=== PATIENT | female | born 1970 | race Caucasian/White ===

== ENCOUNTER 2022-05-08 15:39 | Emergency (ER) | payer OTHER, SELFPAY ==
--- NOTE | ~2022-05-08 | XR_ITS ---
XR lumbar spine 2-3V 05/08/2022 16:59 Indication: Status post fall. Low back pain. Procedure: 3 views lumbar spine Comparison: No prior studies for comparison. Findings: There is a mild superior endplate compression deformity of T12, age indeterminate. No signi ficant disc narrowing of the lumbar spine. No evidence for spondylolisthesis. Impression: 1: Mild age-indeterminate superior endplate compression deformity of T12. Consider correlation with C T or MRI. Reviewed, dictated and finalized at [facility]. Impression: 1: Mild age-indeterminate superior endplate compression deformity of T12. Consi ankur correlation with CT or MRI.
[2022-05-08 16:07] VITALS: BP 124/92; PULSE 91; RESP 18; TEMP 36.3; O2SAT 96
[2022-05-08 16:08] VITALS: BP 124/92; PULSE 91; RESP 18; TEMP 36.3; O2SAT 96
--- NOTE | 2022-05-08 16:27 | ED.BACK ---
HPI - Back Pain/Injury General Chief Complaint: Back Pain/Injury Stated Complaint: Fall Injury Back Pain Time Seen by Provider: 05/08/22 16:35 Source: patient and RN notes reviewed Mode of arrival: ambulatory Limitations: no limitations History of Present Illness HPI Narrative: 51-year-old female presents with concern for back pain. She reports yesterday she slipped and fell in her kitchen landing on her butt causing low back pain. She denies tailbone pain. She reports she has been using a cane for mobility due to the pain. She reports being upright makes the pain worse. She reports lying flat improves the pain. She reports she has tried muscle relaxers and opioid pain relievers without relief. She denies weakness in any extremity, loss of bowel or bladder function, perianal anesthesia. MD elicited complaint: back pain Related Data Home Medications Medication Instructions Recorded Confirmed desvenlafaxine succinate 100 mg 100 mg PO DAILY 05/08/22 05/08/22 tablet,extended release 24 hr diclofenac sodium 75 mg 75 mg PO DAILY 05/08/22 05/08/22 tablet,delayed release gabapentin 300 mg capsule 300 mg PO DAILY 05/08/22 05/08/22 lisdexamfetamine 40 mg capsule 40 mg PO DAILY 05/08/22 05/08/22 (Vyvanse) lorazepam 1 mg tablet 1 mg PO DAILY 05/08/22 05/08/22 omeprazole 40 mg capsule,delayed 40 mg PO DAILY 05/08/22 05/08/22 release rosuvastatin 20 mg tablet 20 mg PO DAILY 05/08/22 05/08/22 Allergies Allergy/AdvReac Type Severity Reaction Status Date / Time No Known Allergies Allergy Verified 05/08/22 16:32 Review of Systems Review of Systems: CONSTITUTIONAL: Denies malaise, chills, sweats, or fever. CARDIOVASCULAR: Denies chest pain, palpitations, or edema. RESPIRATORY: Denies cough or dyspnea. GASTROINTESTINAL: Denies abdominal pain, nausea, vomiting, diarrhea, loss of bowel function GENITOURINARY: Denies dysuria, hematuria, frequency, loss of bladder function. SKIN: Denies rash or itching. MUSCULOSKELETAL: Reports mid low back pain NEUROLOGIC: Denies numbness, weakness, or headache. All systems reviewed & are unremarkable except as noted in HPI and below PMFSH Comments At time of signature, agree with nursing past medical, surgical, social and family history. There is no relevant family history pertinent to the presenting complaint Exam Narrative: GENERAL: Well-appearing, well-nourished, and in no acute distress. HEAD: Normocephalic, atraumatic. EYES: PERRLA and EOMI. NECK: Supple. No lymphadenopathy. CHEST: Clear to auscultation. No respiratory distress. HEART: Regular rate and rhythm. Distal pulses palpable and equal, cap refill <3 seconds ABDOMEN: Soft, nontender, nondistended, normal active bowel sounds, no palpable or pulsatile masses. No CVA tenderness MUSCULOSKELETAL:Grossly normal range of motion and strength in all extremities; 5/5 strength with hip flexion and extension, dorsiflexion and extension, knee flexion and extension, plantar flexion and extension. Normal sensation in dermatomal distributions with sensitivity to light touch and pain. No midline back tenderness to palpation. No paraspinal tenderness. Transfers from sitting to standing. SKIN: Warm, dry, no rash. No ecchymosis, erythema, open wounds to back. NEURO: No focal deficits. Alert and oriented x3. PSYCH: Normal mood and affect Course Course Emergency Course: Patient is aware of diagnosis, understands and agrees to treatment plan. Anticipatory guidance given. Patient agrees to follow-up as directed and is aware of reasons to seek care at the emergency department. Portions of this record may have been created with voice recognition software Level of Care: Express Care Visit Vital Signs Vital signs: Vital Signs Temperature 97.4 F L 05/08/22 16:07 Pulse Rate 91 05/08/22 16:07 Respiratory Rate 18 05/08/22 16:07 Blood Pressure 124/92 H 05/08/22 16:07 Pulse Oximetry 96 05/08/22 16:07 Oxygen Delivery Room Air 04/14
[2022-05-08] MEDS: methylPREDNISolone SOD SUCC 125 MG VIAL IM (17:02)
== END 2022-05-08 17:23 | disposition home or self-care (01) ==
PROVIDERS: Emergency Provider Nurse Practitioner
DX: S22.080A Wedge compression fracture of T11-T12 vertebra, initial encounter for closed fracture (principal); W18.30XA Fall on same level, unspecified, initial encounter
CPT/HCPCS: 72100; 96372; 99213; G0463; J2930

== ENCOUNTER 2022-07-22 13:18 | Outpatient (CLI) | payer OTHER, SELFPAY | END 2022-07-22 13:19 | disposition home or self-care (01) | PROVIDERS: Visit Provider Nurse Practitioner Adult Health | DX: R82.90 Unspecified abnormal findings in urine (principal) | CPT/HCPCS: 87077; 87086; 87186 ==

== ENCOUNTER → 2022-08-18 09:56 | Outpatient (CLI) | payer OTHER, SELFPAY ==
--- NOTE | ~2022-08-18 | CT_ITS ---
EXAMINATION: CT abdomen pelvis wo/w con DATE: 08/18/2022 10:48 INDICATION: Urinary tract infection. History of adrenal adenoma. TECHNIQUE: Computed tomography (CT) of the abdomen and pelvis was performed without and subsequently with 130 CC Omnipaque 350 intravenous contrast. Automated exposure control and iterative reconstructi on technique were employed. Exam dose: 2235.04 mGy-cm total exam DLP. COMPARISON: None. FINDINGS: The lung bases are clear of infiltrate or consolidation. Normal heart size. No pericardial or pleural effusion. Status post cholecystectomy. There is diffuse hepatic steatosis. No hepatic, splenic, pancreatic or right adrenal mass lesion is n oted. Approximately 1.4 x 1.8 cm left adrenal low-attenuation lesion; history of adrenal adenoma. No urinary tract calculus or hydroureteronephrosis. No renal mass lesion. No intraluminal filling def ect of the renal collecting systems or ureters or urinary bladder or bladder wall thickening. Status post hysterectomy. Postoperative change of the stomach. Normal appendix. Diverticulosis of left and right colon; no CT evidence of diverticulitis. No bowel obstruction, bowel wall thickening, pneumatosis or intraperitoneal free air. There is atherosclerotic calcification but normal caliber of the abdominal aorta. No intraperitoneal or retroperitoneal or pelvic mass lesion or adenopathy or ascites. Very small fat-containing umbilical hernia. Moderately severe burst fracture deformity of T12. Hemangioma of L1. IMPRESSION: Left adrenal adenoma Diverticulosis of the left and right colon; no evidence of diverticulitis Normal appendix Postoperative change of the stomach Status post cholecystectomy Burst fracture of T12 Benign hemangioma of L1 Reviewed, dictated and finalized at [facility]. Reviewed, dictated and finalized at location [facility]. 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
--- NOTE | ~2022-08-18 | XR_ITS ---
Supine and upright views of the abdomen Clinical history: UTI Findings: Bowel gas pattern is nonspecific. Cholecystectomy clips noted. No evidence for obstruction or free air. No abnormal mass lesion or calcification is seen. Osseous structures are intact. Impression: No significant abnormality is seen. Reviewed, dictated and finalized at [facility]. 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
[2022-08-18 10:24] LABS: Estimated Glomerular Filt Rate > 60
== END ==
PROVIDERS: Visit Provider Nurse Practitioner Adult Health
DX: N39.0 Urinary tract infection, site not specified (principal); D35.02 Benign neoplasm of left adrenal gland; K57.30 Diverticulosis of large intestine without perforation or abscess without bleeding; Z90.49 Acquired absence of other specified parts of digestive tract; S22.081A Stable burst fracture of T11-T12 vertebra, initial encounter for closed fracture; X58.XXXA Exposure to other specified factors, initial encounter
CPT/HCPCS: 74018; 74178; Q9967

== ENCOUNTER 2022-08-26 09:56 | Outpatient (CLI) | payer OTHER, SELFPAY ==
[2022-08-26 11:13] LABS: Basophils Percent Auto 0.5 % (0.2-1.2); Eosinophils Absolute Auto 0.2 K/mm3 (0-0.3); Eosinophils Percent Auto 3.2 % (0-4.4); Hematocrit 45.2 % (37.0-47.0); Hemoglobin 15.1 g/dL (12.0-15.0); Immature Granulocyte Absolute 0.01 K/mm3 (0.00-0.031); Immature Granulocyte Percent A 0.2 % (0-0.5); Lymphocytes Absolute Auto 2.34 K/mm3 (0.9-3.2); Lymphocytes Percent Auto 39.4 % (18.3-44.2); Mean Corpuscular HGB Conc 33.4 g/dl (32-36); Mean Corpuscular Hemoglobin 30.3 pg (26-34); Mean Corpuscular Volume 90.6 fl (80-100); Mean Platelet Volume 10.5 fl (7.4-10.4); Monocytes Absolute Auto 0.3 K/mm3 (0.1-0.6); Monocytes Percent Auto 5.6 % (2.6-8.5); Neutrophils Percent Auto 51.1 % (45.5-73.1); Platelet Count Result 225 k/mm3 (150-375); Red Blood Count 4.99 M/mm3 (4.2-5.4); Red Cell Distribution Width 13.2 % (11.5-14.5); White Blood Count 5.9 K/mm3 (4.5-10.0)
[2022-08-26 11:30] LABS: Alanine Aminotransferase 36 U/L (6-35); Albumin Level 4.2 g/dL (3.5-5.1); Alkaline Phosphatase 74 U/L (38-126); Anion Gap 3 mmol/L (8-16); Aspartate Amino Transferase 33 U/L (14-36); Bilirubin,Total 0.5 mg/dL (0.2-1.3); Blood Urea Nitrogen 10 mg/dL (7-17); CRP 0.8 mg/dL (<1.0); Calcium 9.2 mg/dL (8.4-10.2); Carbon Dioxide 33 mmol/L (22-30); Chloride 102 mmol/L (98-107); Cholesterol 239 mg/dL (0-200); Estimated Glomerular Filt Rate > 60; Glucose 97 mg/dL (65-110); HDL Direct 33 mg/dL; Magnesium 1.8 mg/dL (1.6-2.3); Potassium 4.4 mmol/L (3.4-5.0); Sodium 138 mmol/L (137-145); Triglycerides 107 mg/dL (<150)
[2022-08-26 11:39] LABS: LDL Cholesterol Direct 164 mg/dL
[2022-08-26 12:04] LABS: Hemoglobin A1C 5.3 % (<5.7)
[2022-08-26 12:05] LABS: Vitamin D 25 Hydroxy 25.2 ng/mL
[2022-08-26 12:30] LABS: Free T4 Free Thyroxine 1.35 ng/mL (0.78-2.19)
[2022-08-30 12:45] LABS: DHEA-Sulfate 8 mcg/dL (8-188); Insulin Level Total 11.2 uIU/mL (<=19.6)
[2022-08-31 13:31] LABS: T3 Reverse 24 ng/dL (8-25)
[2022-09-01 22:43] LABS: Estradiol, Ultrasensitive 8 pg/mL
[2022-09-02 14:56] LABS: Zinc 75 mcg/dL (60-130)
[2022-09-02 21:23] LABS: Testosterone Free 1.3 pg/mL (0.1-6.4); Testosterone Total 20 ng/dL (2-45)
[2022-09-03 22:05] LABS: LH 27.5 mIU/mL (***); Progesterone <0.2 ng/mL (***); Triiodothyronine T3 Free 3.4 pg/mL (2.3-4.2)
[2022-09-04 04:35] LABS: Thyroid Peroxidase Antibodies 5 IU/mL (<9)
[2022-09-05 01:22] LABS: Thyroglobulin 52.4 ng/mL (2.8-40.9); Thyroglobulin Antibodies <1 IU/mL (<=1)
== END 2022-08-26 09:57 | disposition home or self-care (01) ==
LOC: ANHLAB 10:00
DX: N95.0 Postmenopausal bleeding (principal); F41.8 Other specified anxiety disorders; G47.00 Insomnia, unspecified; R68.82 Decreased libido
CPT/HCPCS: 36415; 80053; 80061; 82306; 82607; 82627; 82670; 82728; 83001; 83002; 83036; 83090; 83525; 83695; 83735; 84144; 84402; 84403; 84432; 84439; 84443; 84481; 84482; 84630; 85025; 86140; 86376; 86800

== ENCOUNTER 2023-03-20 16:24 | Outpatient (CLI) | payer OTHER, SELFPAY ==
[2023-03-20 17:24] LABS: Basophils Percent Auto 0.5 % (0.2-1.2); Eosinophils Absolute Auto 0.2 K/mm3 (0-0.3); Eosinophils Percent Auto 2.1 % (0-4.4); Hematocrit 46.4 % (37.0-47.0); Hemoglobin 15.3 g/dL (12.0-15.0); Immature Granulocyte Absolute 0.01 K/mm3 (0.00-0.031); Immature Granulocyte Percent A 0.1 % (0-0.5); Lymphocytes Absolute Auto 3.18 K/mm3 (0.9-3.2); Lymphocytes Percent Auto 42.1 % (18.3-44.2); Mean Corpuscular Hemoglobin 29.7 pg (26-34); Mean Corpuscular Volume 90.1 fl (80-100); Mean Platelet Volume 9.8 fl (7.4-10.4); Monocytes Absolute Auto 0.4 K/mm3 (0.1-0.6); Monocytes Percent Auto 4.6 % (2.6-8.5); Neutrophils Absolute Auto 3.8 K/mm3 (1.3-6.7); Neutrophils Percent Auto 50.6 % (45.5-73.1); Platelet Count Result 243 k/mm3 (150-375); Red Blood Count 5.15 M/mm3 (4.2-5.4); Red Cell Distribution Width 13.1 % (11.5-14.5); White Blood Count 7.6 K/mm3 (4.5-10.0)
[2023-03-20 17:52] LABS: Hemoglobin A1C 5.3 % (<5.7)
[2023-03-20 17:56] LABS: Alanine Aminotransferase 29 U/L (6-35); Albumin Level 4.3 g/dL (3.5-5.1); Alkaline Phosphatase 107 U/L (38-126); Anion Gap 9 mmol/L (8-16); Aspartate Amino Transferase 28 U/L (14-36); Bilirubin,Total 0.7 mg/dL (0.2-1.3); Blood Urea Nitrogen 9 mg/dL (7-17); Calcium 9.1 mg/dL (8.4-10.2); Carbon Dioxide 25 mmol/L (22-30); Chloride 104 mmol/L (98-107); Cholesterol 247 mg/dL (0-200); Estimated Glomerular Filt Rate > 60; Glucose 93 mg/dL (65-110); HDL Direct 37 mg/dL; Magnesium 1.8 mg/dL (1.6-2.3); Potassium 3.8 mmol/L (3.4-5.0); Sodium 138 mmol/L (137-145); Triglycerides 100 mg/dL (<150)
[2023-03-20 18:07] LABS: LDL Cholesterol Direct 174 mg/dL
[2023-03-20 18:29] LABS: Vitamin D 25 Hydroxy 34.8 ng/mL
[2023-03-20 18:54] LABS: Vitamin B12 > 1000.0 pg/mL (239-931)
[2023-03-22 14:49] LABS: Zinc 74 mcg/dL (60-130)
[2023-03-23 05:50] LABS: DHEA-Sulfate 8 mcg/dL (8-188); Insulin Level Total 8.1 uIU/mL (<=19.6); Thyroid Peroxidase Antibodies 9 IU/mL (<9)
[2023-03-23 13:21] LABS: T3 Reverse 30 ng/dL (8-25)
[2023-03-23 13:22] LABS: Homocysteine 7.3 umol/L (<10.4)
[2023-03-23 15:11] LABS: Testosterone Free 1.2 pg/mL (0.1-6.4); Testosterone Total 22 ng/dL (2-45)
[2023-03-24 09:54] LABS: CRP, High Sensitivity 8.4 mg/L (***)
[2023-03-26 07:22] LABS: FSH 65.6 mIU/mL (***); LH 29.6 mIU/mL (***); Progesterone 0.2 ng/mL (***)
[2023-03-27 22:36] LABS: Estradiol, Ultrasensitive 8 pg/mL
[2023-04-06 14:49] LABS: T3 Free 3.0 pg/mL
== END 2023-03-20 16:25 | disposition home or self-care (01) ==
DX: R68.82 Decreased libido (principal); G47.00 Insomnia, unspecified; R53.83 Other fatigue; R63.5 Abnormal weight gain; Z78.0 Asymptomatic menopausal state
CPT/HCPCS: 36415; 80053; 80061; 82306; 82607; 82627; 82670; 82728; 83001; 83002; 83036; 83090; 83525; 83735; 84144; 84402; 84403; 84436; 84443; 84480; 84482; 84630; 85025; 86141; 86376; 86800

== ENCOUNTER 2023-03-30 14:37 | Emergency (ER) | payer OTHER, SELFPAY ==
--- NOTE | 2023-03-30 14:42 | ED.FEMALEGU ---
HPI - Female Genitourinary General Chief complaint: Urogenital-Female Stated complaint: urinary issue Time Seen by Provider: 03/30/23 14:39 Source: patient Mode of arrival: ambulatory Limitations: no limitations History of Present Illness HPI Narrative: Nilda is a 52-year-old female patient presenting to the clinic today with complaints of possible UTI. She reports she has been having symptoms bladder pressure and burning with urination x2 weeks. States she gets urinary tract infections a lot when she goes swimming. States she has recently been swimming. Has taken some leftover Bactrim x4 days and this improved her symptoms however she discontinue taking and her symptoms return.. Related Data Home Medications Medication Instructions Recorded Confirmed lisdexamfetamine 40 mg capsule 40 mg PO DAILY 05/08/22 03/30/23 (Vyvanse) omeprazole 40 mg capsule,delayed 40 mg PO DAILY 05/08/22 03/30/23 release rosuvastatin 20 mg tablet 20 mg PO DAILY 05/08/22 03/30/23 Allergies Allergy/AdvReac Type Severity Reaction Status Date / Time No Known Allergies Allergy Verified 03/30/23 14:40 Review of Systems Review of Systems: Pertinent positives per HPI. Patient denies any fever, chills, rash, headache, visual changes, dizziness, cough, runny nose, sore throat, shortness of breath, chest pain, palpitations, nausea, vomiting, diarrhea, constipation, abdominal pain, or any urinary issues. PMFSH Comments At the time of my signature, I reviewed and agree with the nursing past medical, surgical, social, and family history. There is no relevant family history pertinent to the patient complaint. Exam Narrative: General: Well-developed, obese, in no apparent distress. Head: Normocephalic, atraumatic. Cardio: Regular rate and rhythm, s1 and s2 normal, no murmur appreciated. Resp: Clear to auscultation bilaterally, no rhonchi, rales, wheezing or rubs. Abdomen: Soft, pliable, bowel sounds present in all quadrants, mild tender to palpation over the suprapubic but, no organomegly, no CVAT tenderness. Course Course Emergency Course: Portions of this record may have been created with voice recognition software. Level of Care: Express Care Visit Vital Signs Vital signs: Vital signs reviewed MDM - Female Genitourinary MDM Narrative Medical decision making narrative: At the time of visit patient is resting comfortably on the exam table. UA is positive for trace leukocytes and nitrate positive. Patient is requesting to be placed back on Bactrim. Will send in 7 day course of Bactrim and send urine for culture. Supportive measures were discussed with the patient she voiced understanding discharge instructions and agrees to treatment plan. Differential Diagnosis Differential diagnosis: Likely urinary tract infection and cystitis Discharge Plan Discharge Clinical Impression: Urinary tract infection Patient Disposition: Home, Self-Care Condition: Stable Instructions: Antibiotic Form, Urinary Tract Infection in Women (ED) Additional Instructions: UA positive for white blood cells and nitrates. We will send for culture. Take Bactrim as prescribed Increase fluids and stay well hydrated Wipe front to back. May use wet wipes. Avoid tub baths If sexually active- pee before and after intercourse. Wear cotton panties Avoid tight clothing up against the genitals Follow up with your PCP in 1 week if symptoms persist. Prescriptions: New sulfamethoxazole-trimethoprim [Bactrim DS] 800-160 mg tablet 1 tablet PO Q12H 7 Days Qty: 14 0RF No Action omeprazole 40 mg capsule,delayed release(DR/EC) 40 mg PO DAILY rosuvastatin 20 mg tablet 20 mg PO DAILY Vyvanse 40 mg capsule 40 mg PO DAILY Follow-up/Referrals: Vin Ruiz MD [Physician] - Time of Disposition: 14:58 Quality NIHSS Nursing Documentation ED NIHSS nursing documentation: reviewed/agree
[2023-03-30 14:50] VITALS: BP 123/72; PULSE 78; RESP 20; TEMP 36.5; O2SAT 99
== END 2023-03-30 15:10 | disposition home or self-care (01) ==
PROVIDERS: Emergency Provider Nurse Practitioner Family
DX: N39.0 Urinary tract infection, site not specified (principal); E78.00 Pure hypercholesterolemia, unspecified; K21.9 Gastro-esophageal reflux disease without esophagitis
CPT/HCPCS: 81003; 87086; 87088; 99213; G0463

== ENCOUNTER 2023-07-08 12:51 | Emergency (ER) | payer OTHER, SELFPAY ==
--- NOTE | 2023-07-08 13:04 | ED.WOUNDLAC ---
HPI - Wound/Laceration General Chief Complaint: Wound/Laceration Stated Complaint: left thumb cut Time Seen by Provider: 07/08/23 13:04 Source: patient Mode of arrival: ambulatory Limitations: no limitations History of Present Illness HPI narrative: Judy is a 53-year-old female patient presenting to the clinic today with complaints of a laceration to her left thumb. She reports she was making and cut her left thumb while using a pizza cutter. Has a 1 cm mildly gaped laceration to the lateral base of the left thumb Related Data Home Medications Medication Instructions Recorded Confirmed lisdexamfetamine 40 mg capsule 40 mg PO DAILY 05/08/22 07/08/23 (Vyvanse) omeprazole 40 mg capsule,delayed 40 mg PO DAILY 05/08/22 07/08/23 release Allergies Allergy/AdvReac Type Severity Reaction Status Date / Time No Known Allergies Allergy Verified 07/08/23 13:04 Review of Systems Review of Systems: Pertinent positives per HPI. Patient denies any fever, chills, rash, headache, visual changes, dizziness, cough, runny nose, sore throat, shortness of breath, chest pain, palpitations, nausea, vomiting, diarrhea, constipation, abdominal pain, or any urinary issues. PMFSH Comments At the time of my signature, I reviewed and agree with the nursing past medical, surgical, social, and family history. There is no relevant family history pertinent to the patient complaint. Exam Narrative: General: Well-developed, well nourished, in no apparent distress Head: Normocephalic, atraumatic. Cardio: Regular rate and rhythm, s1 and s2 normal, no murmur appreciated. Resp: Clear to auscultation bilaterally, no rhonchi, rales, wheezing or rubs. Integumentary: [place], warm, and dry, 1 cm gaped mildly gaped laceration to the lateral aspect of the base of the dorsal left thumb Course Course Emergency Course: Portions of this record may have been created with voice recognition software. Level of Care: Express Care Visit Vital Signs Vital signs: Vital signs reviewed Procedures Laceration Laceration 1: Date: 07/08/23 Site: hand (thumb) Side (If applicable): left Size (cm): 1 Description: linear Depth: simple, single layer Local Anesthetic: lidocaine 1% Amount of anesthesia used (mL): 1 Pre-repair: wound explored and irrigated ====== Skin Level ====== Skin layer closed with: nylon Size (cm): 4-0 Number of sutures: 2 Technique: simple, interrupted ====== Subcutaneous Layer ====== ====== Muscle Layer ====== ====== Tendon Layer ====== Dressing: Verbal consent obtained for laceration repair. Risk and benefits explained and patient voiced understanding. Area was cleansed with antiseptic skin soap and a 25 gauge needle was then used to instill (1) ml of 1% lidocaine without epi into the wound edges. Area was prepped and draped using sterile technique. A 4-0 suture on a p needle was used to place (2) interrupted sutures bringing the wound edges together- well approximated. Patient tolerated procedure well. Sterile dressing applied. MDM - Wound/Laceration MDM Narrative Medical decision making narrative: At the time of visit patient is resting comfortably on the exam table. Laceration repair was performed in the clinic today. Patient tolerated procedure well. Supportive measures were discussed with the patient she voiced understanding discharge instructions agrees to treatment plan. Return precautions were reviewed Differential Diagnosis Differential diagnosis: Likely laceration, abscess, abrasion and avulsion of skin Discharge Plan Discharge Clinical Impression: Finger laceration Qualifiers: Encounter type: initial encounter Finger: thumb Damage to nail status: without damage Foreign body presence: without foreign body Laterality: left Qualified Code(s): S61.012A - Laceration without foreign body of left marybel
[2023-07-08 13:05] VITALS: BP 124/53; PULSE 84; RESP 16; TEMP 36.2; O2SAT 97
== END 2023-07-08 13:36 | disposition home or self-care (01) ==
PROVIDERS: Emergency Provider Nurse Practitioner Family
DX: S61.012A Laceration without foreign body of left thumb without damage to nail, initial encounter (principal); W26.8XXA Contact with other sharp object(s), not elsewhere classified, initial encounter; E78.00 Pure hypercholesterolemia, unspecified; K21.9 Gastro-esophageal reflux disease without esophagitis
CPT/HCPCS: 12001; 99212; G0463

== ENCOUNTER 2023-09-21 17:13 | Emergency (ER) | payer OTHER, SELFPAY ==
--- NOTE | 2023-09-21 17:22 | ED.GENADULT ---
HPI - General Adult General Chief complaint: Upper Respiratory Infection Stated complaint: cough Influenza A + 09/19/2023 Source: patient, RN notes reviewed and old records reviewed Mode of arrival: ambulatory Limitations: no limitations History of Present Illness HPI narrative: 53-year-old female presents to [facility] with complaints cough, congestion, myalgias that started last Sunday. Patient was seen in her PCP office on Sunday diagnosed with influenza A. Patient states cough is worsening and feels she needs albuterol inhaler. Patient states does not have a history of asthma only uses inhaler for sickness. Related Data Home Medications Medication Instructions Recorded Confirmed lisdexamfetamine 40 mg capsule 40 mg PO DAILY 05/08/22 09/21/23 (Vyvanse) omeprazole 40 mg capsule,delayed 40 mg PO DAILY 05/08/22 09/21/23 release Allergies Allergy/AdvReac Type Severity Reaction Status Date / Time No Known Allergies Allergy Verified 09/21/23 17:22 Review of Systems Constitutional: Constitutional: Reports no additional constitutional complaints, Reports body ache(s), Denies chills, Denies fatigue, Reports fever(s) and Denies headache(s) Eyes: Eyes: Reports no additional eye complaints and Denies blurry vision ENT: Reports system reviewed and no additional complaints, except as documented, Denies vertigo, Denies dizziness, Denies ear discharge, Denies otalgia, Denies facial pain, Denies headache(s), Reports nasal congestion, Denies nasal discharge, Denies sinus pain, Reports sinus pressure and Denies sore throat Cardiovascular: Cardiovascular: Reports no additional cardiovascular complaints, Denies chest pain, Denies chest pain at rest, Denies rapid heart rate and Denies dyspnea Respiratory: Respiratory: Reports no additional respiratory complaints, Reports chest congestion, Reports cough, Denies pain on inspiration, Denies pain with cough and Denies dyspnea Gastrointestinal: Gastrointestinal: Denies abdominal pain, Denies diarrhea, Denies nausea and Denies vomiting Integumentary/Breasts: Skin/Breast: Denies rash Neurologic: Reports system reviewed and no additional complaints, except as documented, Denies vertigo, Denies dizziness and Denies headache(s) Endocrine: Endocrine: Denies fatigue PMFSH Comments At the time of my signature, I reviewed and agree with the nursing past medical, surgical, social, and family history. There is no relevant family history pertinent to the patient complaint. Exam Const: General: cooperative, healthy appearing, no acute distress and well nourished Nutritional Appearance: well nourished Orientation/consciousness: patient oriented x3 Limitations: no limitations HENMT: Head: normal to inspection and normocephalic Ears: external ears normal, TM's normal bilaterally, mastoids normal and Abnormal EAC present Face/Nose/Sinus: normal facial exam Face and sinus: normal facial exam Mouth: Yes Normal oral and palatal mucosa present, Yes oropharynx normal and Yes moist mucous membranes Throat: tonsils normal, uvula midline and no uvular edema Eyes: General: appearance normal, both eyes and all related structures Sclera: sclerae normal Pupils: Equal, round and reactive pupils present Resp: Effort & Inspection: normal respiratory effort, able to speak in complete sentences, no audible wheezes, Actively coughing, no respiratory distress and no retractions Auscultation: clear to auscultation bilaterally, no crackles, no rales, no rhonchi and no wheezes Cardio: Rate: regular rate Rhythm: regular rhythm Skin: General skin exam: normal color and no rashes or lesions noted Neuro: General: patient oriented x3 Cranial nerves: Yes Equal, round and reactive pupils present Psych: Appearance: grossly normal Mental Status: mental status grossly normal Speech and movement: Normal speech and movement present Affect: normal affect Course Course Emergency Course: Patient is aware of di
[2023-09-21 17:24] VITALS: BP 121/80; PULSE 112; RESP 16; TEMP 37.3; O2SAT 97
== END 2023-09-21 17:39 | disposition home or self-care (01) ==
PROVIDERS: Emergency Provider Registered Nurse
DX: J10.1 Influenza due to other identified influenza virus with other respiratory manifestations (principal); R05.1 Acute cough; E78.00 Pure hypercholesterolemia, unspecified; K21.9 Gastro-esophageal reflux disease without esophagitis
CPT/HCPCS: 99213; G0463